=== PATIENT | male | born 1945 | race Caucasian/White ===

== ENCOUNTER 2018-11-10 10:42 | Observation (INO) ==
--- NOTE | 2018-11-05 10:23 | PAT Medication Instructions ---
Medication Instructions Date of Service November 05, 2018 Home Medications alfuzosin 10 mg PO DAILY aspirin 81 mg PO DAILY finasteride [Proscar] 5 mg PO QAM hydrochlorothiazide 25 mg PO HS lisinopril 40 mg PO HS tamsulosin [Flomax] 0.4 mg PO QAM ASK your prescriber and surgeon aspirin 81 mg PO DAILY Take morning of surgery With a small sip of water, OTHERWISE NOTHING TO EAT OR DRINK AFTER MIDNIGHT: alfuzosin 10 mg PO DAILY finasteride [Proscar] 5 mg PO QAM tamsulosin [Flomax] 0.4 mg PO QAM Take evening before surgery hydrochlorothiazide 25 mg PO HS lisinopril 40 mg PO HS Other Notes If you have any questions please call us at [phone] or [phone] or [phone] or [phone]
--- NOTE | 2018-11-06 11:41 | Anesthesiology Consultation ---
Date of Service November 06, 2018 Assessment & Plan (1) Encounter for pre-operative examination: - No previous anesthesia records. Chart Review Chart Review: Acceptable Risk for Surgery (Pending confirmed EKG) and Patient seen in Pre Admission Testing Consults Requested none Teaching & Discussion Pre-Anesthesia Teaching/Discussion Notes: Instructed NPO after midnight before surgery, except medications with 15 cc of water. Medication instructions provided according to the PAT guidelines. History Surgery Operation Date: 11/10/18 12:25 Proposed Procedures p Photoselective Vaporization of the Prostate using Greenlight Laser - Edward Piña MD Height/Weight Height: 5 ft 9 in Weight: 113.4 kg Allergies Allergy/AdvReac Type Severity Reaction Status Date / Time No Known Allergies Allergy Verified 11/04/18 11:33 Medications Home Medications Medication Instructions Recorded Confirmed Last Taken alfuzosin 10 mg PO DAILY 11/04/18 11/04/18 Unknown aspirin 81 mg PO DAILY 11/04/18 11/04/18 Unknown finasteride [Proscar] 5 mg PO QAM 11/04/18 11/04/18 Unknown hydrochlorothiazide 25 mg PO HS 11/04/18 11/04/18 Unknown lisinopril 40 mg PO HS 11/04/18 11/04/18 Unknown tamsulosin [Flomax] 0.4 mg PO QAM 11/04/18 11/04/18 Unknown Past Medical History Medical History BPH (benign prostatic hyperplasia) Degenerative disc disease Gout Hypertension Osteoarthritis Exercise / Class Metabolic Activity II 4-5 Yardwork/Stairs/Walk up hill (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 Denies CP or SOB. 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) History of arthroscopy LEFT KNEE History of cataract surgery LEFT History of colonoscopy History of repair of rotator cuff RT History of tonsillectomy History of tooth extraction Past Anesthesia History No Hx of Anesthesia Complications and No Family Hx of Anesthesia Complications History of PONV No Hx of Motion Sickness and History of PONV (Once after traumatic amputation with flap closure) Social History Smoking Status: Never smoker Do You Dip or Chew Tobacco: No Hx Alcohol Use: Yes Alcohol type: beer and hard liquor alcohol intake frequency: a few times a week Hx Substance Use: No substance use type: does not use Review of Systems Patient denies chest pain, shortness of breath, dyspnea on exertion, reflux, cough, wheezing, palpitations. +Joint Pain (Gout causes foot pain, Back) Physical Exam Vital Signs BP: 121/80 P: 60 R: 16 T: 97.9 SPO2: 99% on RA Constitutional + obese ENMT Thyromental Distance: > or= 3.5 Finger Breadths (4) Mallampati Class: II Neck normal visual inspection, trachea midline and + thick neck; neck extension not limited Respiratory normal respiratory effort Auscultation: lungs clear to auscultation bilaterally Cardiovascular Rate/Rhythm: regular rate and regular rhythm Heart Sounds: no murmur Vessels: no carotid bruit Neurologic moves all extremities Psychiatric Orientation: alert and oriented x 3 Testing Laboratory Results Urine Color Yellow 11/06/18 11:57 Urine Appearance Clear (Clear) 11/06/18 11:57 Urine pH 7.0 (4.5-7.5) 11/06/18 11:57 Ur Specific [place] 1.006 (1.000-1.030) 11/06/18 11:57 Urine Protein Negative (Negative) 11/06/18 11:57 Urine Glucose (UA) Negative (Negative) 11/06/18 11:57 Urine Ketones Negative (Negative) 11/06/18 11:57 Urine Nitrite Negative (Negative) 11/06/18 11:57 Ur Leukocyte Esterase Negative (Negative) 11/06/18 11:57 Urine WBC (Auto) 0 /hpf (0-5) 11/06/18 11:57 Urine RBC (Auto) 0-4 /hpf (0-4) 11/06/18 11:57 U Hyaline Cast (Auto) 1-5 /lpf (0-5) 11/06/18 11:57 U Epithel Cells (Auto) 5-10 /lpf (0-5) H 11/06/18 11:57 Urine Bacteria (Auto) Negative (Negative) 11/06/18 11:57 Blood Type O Positive 11/06/18 11:57 Antibody Screen NEGATIVE 11/06/18 11:57 11/06/18 11:57 Urine Culture - Preliminary Urine,Clean Catch No growth - Less than 1,000 colonies/mL, Final report to follow. [facility] 7/20/19 WBC: 10.0 H/H: 16.9 H/ 50.2 H PLATELETS: 188 SODIUM: 135 POTASSIUM: 4.4 CHLORIDE: 98 CO2: 27 BUN: 22 H CREATININE: 1.21 GLUCOSE: 118 H Electrocardiogram Date: 11/06/18 Findings: + SB @ (59) Non-specific intra-ventricular conduction delay Chest X-Ray Date: 11/06/18 Findings: + NAD
--- NOTE | 2018-11-06 12:35 | XRay Report ---
XR chest Pre-admission PA/Lat CLINICAL HISTORY: pat preoperative evaluation COMPARISON STUDY: No previous studies for comparison. FINDINGS: The bones soft tissues and hemidiaphragms are normal. The cardiomediastinal silhouette is n ormal. The lungs are clear. The pulmonary vasculature is normal. IMPRESSION: Negative chest. The above report was generated using voice recognition software. It may contain grammatical, syntax or spelling errors. Electronically signed by: Juan Luis Garcia M.D. 11/06/2018 12:34 PM
[2018-11-06 12:58] LABS: Appearance Urine Clear (Clear); Bacteria Urine Automated Negative (Negative); Bilirubin Urine Negative (Negative); Blood Urine Trace (Negative); Color Urine Yellow; Glucose Urine UA Negative (Negative); Ketones Urine Negative (Negative); Leukocyte Esterase Urine Negative (Negative); Nitrite Urine Negative (Negative); Protein Urine Negative (Negative); RBC Urine Automated 0-4 /hpf (0-4); Specific Gravity Urine 1.006 (1.000-1.030); Urobilinogen Urine Negative (Negative); WBC Urine Automated 0 /hpf (0-5)
[~2018-11-10 10:42] MED LIST: CIPROFLOXACIN 400 MG/200 ML BAG IV SCH; LR 15ML/HR IV SCH
[2018-11-10] MEDS ORDERED: MEPERIDINE HCL 25 MG/ML CARP IV PRN (10:47)
[2018-11-10] MEDS ORDERED: PHENYLEPHRINE 100MCG/ML 5ML SYR IV PRN (10:47)
[2018-11-10] MEDS ORDERED: fentaNYL citrate 100 MCG/2 ML VIAL IV PRN (10:47)
[2018-11-10] MEDS ORDERED: ATROPINE SULFATE 0.1 MG/ML 10ML SYR IV PRN (10:47)
[2018-11-10] MEDS ORDERED: LABETALOL HCL IV 5 MG/ML 20ML IV PRN (10:47)
[2018-11-10] MEDS ORDERED: ONDANSETRON INJ 2 MG/ML 2 ML VIAL IV PRN ×2 (10:47→15:28)
[2018-11-10] MEDS ORDERED: HYDROmorphone INJ 1 MG/ML SYRINGE IV PRN ×2 (10:47→15:28)
[2018-11-10] MEDS ORDERED: ePHEDrine sulfate 50 MG/ML AMP IV PRN (10:47)
[2018-11-10] MEDS ORDERED: PROPOFOL IV EMULSION 10 MG/ML 20 ML VIAL IV ONE (11:16)
[2018-11-10] MEDS ORDERED: DEXAMETHASONE SOD INJ 4 MG/ML VIAL ONE (11:16)
[2018-11-10] MEDS ORDERED: LIDOCAINE HCL 2% 2 ML VIAL/AMP(20MG/ML) INFIL ONE (11:16)
[2018-11-10] MEDS ORDERED: ONDANSETRON INJ 2 MG/ML 2 ML VIAL ONE (11:16)
[2018-11-10] MEDS ORDERED: fentaNYL citrate 100 MCG/2 ML VIAL ONE (11:16)
--- NOTE | 2018-11-10 12:13 | History & Physical Bridge Note ---
Date of Service November 10, 2018 History & Physical Bridge Note I have examined the patient, reviewed the History & Physical and in the interval since the performance of the History & Physical I have noted the following changes of clinical significance: no changes noted
--- NOTE | 2018-11-10 14:06 | Operative Report ---
Post Operative Report Pre & Post Diagnosis Operation Date: 11/10/18 12:25 Preoperative diagnosis: Symptomatic BPH with a history of urinary retention. Postoperative diagnosis: Same. Procedure: Greenlight vaporization of prostate, bipolar button fulguration of prostatic bleeders, bipolar transurethral resection and button vaporization of prostate (greater than 50% of the case performed using bipolar resectoscope). Surgeon: Dr. Edward Piña. Launch Operator: None. Anesthesia: General anesthesia with laryngeal mask. Complications: None. EBL: 50 cc. Drains left in place: 26 [place] three-way Claudio catheter with 15 cc of sterile water in the balloon. Findings: Vascular prostate with significant bleeders requiring bipolar button fulguration throughout the case, excellent hemostasis after completion of case. Procedure Operation Date: 11/10/18 12:25 Brief history: Patient is a pleasant 72-year-old male with a history of persistent BPH symptoms, gross hematuria and urinary retention. After long- term management on maximal medical therapy with tamsulosin and finasteride patient is decided upon greenlight vaporization of his prostate to manage his disease. Previous office cystoscopy notes are appreciated. Please see H&P for further details. Intravenous ciprofloxacin is provided for antibiotic coverage and SCDs used for DVT prophylaxis. Informed consent reviewed preoperatively today. Procedure: Patient was properly identified and brought into the operative suite after identification of appropriate consent in the chart. General anesthesia with laryngeal mask was initiated and patient was prepped and draped in the standard fashion for this procedure. Full timeout procedure was followed. Greenlight laser scope was introduced into the bladder direct visualization. This demonstrated an enlarged prior vascular and engorged consistent with previous findings. Bladder was distended and evaluated demonstrating no intravesical lesions, papillary masses or calculi. Ureteral orifices were ap preciated to be adequately removed from the bladder neck. Using a side fire greenlight laser fiber circumferential vaporization of the prostate gland was undertaken. This included vaporization of the patient's median lobe. Unfortunately, throughout the prostate gland significant arterial and venous bleeding was encountered. A bipolar resectoscope was introduced approximately penitentiary through the case to fulgurate more insistent arterial bleeders and to resect the median lobe until flush with the trigone. Fragments of prostate tissue were irrigated free and sent for pathologic analysis. Bipolar button vaporization of the prostate was also undertaken with some resection of the lateral lobes. When improved hemostasis had been obtained the greenlight laser was reintroduced with a visual obturator and circumferential vaporization was again undertaken. A total of 99,000 J of energy was used. At the end of the case the bipolar resectoscope was reintroduced and further button vaporization was undertaken of the lateral lobes near the apex of the prostate and fulguration of bleeders. After this was completed an open prostatic fossa with excellent hemostasis was noted. Seen the distance the patient would have to travel and discharged today as well as his multiple hospitalizations for retention and clot retention and the degree of bleeding in the operating room today decision was made to admit the patient for overnight observation. Catheter was placed to continuous bladder irrigation and belladonna and opium suppository was provided for additional postoperative analgesia. Anesthesia was reversed and patient was transferred to the recovery room in stable condition. Follow-up CARE: Patient will be admitted to the floor for overnight observation. Surgeon Edward Piña MD Launch Operator None Estimated Blood Loss 50 Findings Consistent with Post-Op Diagnosis Specimens Prostate chips Description of Procedure See above I attest to the content of the Intraoperative Record and any orders documented therein. Any exceptions are noted below.
[2018-11-10] MEDS ORDERED: SODIUM CHLORIDE 0.9% INJ 10 ML VIAL ONE (14:12)
[2018-11-10] MEDS ORDERED: ePHEDrine sulfate 50 MG/ML AMP ONE ×2 (14:12→14:32)
[2018-11-10] MEDS ORDERED: PHENYLEPHRINE HCL 10 MG/ML VIAL ONE (14:32)
[2018-11-10] MEDS ORDERED: BELLADONNA/OPIUM SUPP 60 MG SUPP PR ONE ×2 (15:15→15:28)
[2018-11-10] MEDS ORDERED: BELLADONNA/OPIUM SUPP 60 MG SUPP PR PRN (15:23)
[2018-11-10] MEDS ORDERED: ACETAMINOPHEN 325 MG TAB PO PRN (15:28)
[2018-11-10] MEDS ORDERED: OXYCODONE/ACETAMINOPHEN 5mg/325mg TAB PO PRN ×2 (15:28)
[2018-11-10] MEDS ORDERED: PHENAZOPYRIDINE HCL 200 MG TAB PO PRN (15:28)
--- NOTE | 2018-11-10 16:09 | Anesthesiology Progress Note ---
Date of Service November 10, 2018 Anesthesia Post Procedure Vital Signs Vital Signs: Temp Pulse Pulse Resp BP BP Pulse Ox 11/10/18 16:00 66 16 123/67 97 11/10/18 15:50 71 18 129/71 98 11/10/18 15:40 67 16 120/67 97 11/10/18 15:35 97.0 F L 71 16 134/70 96 11/10/18 11:34 98.1 F 71 18 141/83 H 96 Transfer of Care Handoff Completed per policy Notes Mental Status: alert / awake / arousable and participated in evaluation Patient Amnestic to Procedure: Yes Nausea / Vomiting: adequately controlled Pain: adequately controlled Airway Patency, RR, SpO2: stable & adequate BP & HR: stable & adequate Hydration State: stable & adequate Anesthetic Complications: no major complications apparent and Pt Satisfied with anesthetic care
[2018-11-10 16:57] LABS: Basophils # (auto) 0.01 K/uL (0-0.2); Basophils % (auto) 0.2 %; Eosinophils # (auto) 0.04 K/uL (0-0.5); Eosinophils % (auto) 0.7 %; Hematocrit (blood only) 45.2 % (42-52); Hemoglobin 15.4 g/dL (14.0-18.0); Immature Granulocytes # (auto) 0.02 K/uL (0.00-0.02); Immature Granulocytes % (auto) 0.3 %; Lymphocytes # (auto) 1.25 K/uL (1.2-3.4); Lymphocytes % (auto) 21.1 %; Mean Corpuscular Hgb Conc 34.1 g/dL (32-36); Monocytes # (auto) 0.19 K/uL (0.11-0.59); Monocytes % (auto) 3.2 %; Neutrophils # (auto) 4.41 K/uL (1.4-6.5); Neutrophils % (auto) 74.5 %; Platelet Count 136 K/uL (130-400); RDW Coefficient of Variation 12.8 % (11.5-14.5); RDW Standard Deviation 43.3 fL (36.4-46.3); Red Blood Count 4.86 M/uL (4.7-6.1); White Blood Count 5.92 K/uL (4.8-10.8)
[2018-11-10] MEDS: LACTATED RINGER'S 1,000 ML IV SCH (17:17)
[2018-11-10 17:21] LABS: BUN Creatinine Ratio 13.9 (10-20); Calcium 9.3 mg/dl (8.5-10.1); Creatinine Clr Calc Pharmacy 76.2 ml/min; Est GFR (African American) 77.9; Est GFR (Non-African American) 67.2
[2018-11-10] MEDS: DOCUSATE SODIUM 100 MG CAP PO SCH (20:43)
[2018-11-10] MEDS: CIPROFLOXACIN 500 MG TAB PO SCH (20:43)
[2018-11-10] MEDS ORDERED: hydroCHLOROthiazide 25 MG TAB PO SCH (21:00)
[2018-11-10] MEDS ORDERED: LISINOPRIL 40 MG TAB PO SCH (21:00)
[2018-11-11] MEDS: LACTATED RINGER'S 1,000 ML IV SCH (05:07)
--- NOTE | 2018-11-11 07:30 | Urology Progress Note ---
Date of Service November 11, 2018 Assessment & Plan (1) BPH loc w/o ur obs/LUTS: A/P 72 yo male POD#1 s/p TURP. Doing well. Stop CBI and ambulate. If does well, DC home with steward later today. TOV and f/u as scheduled. HTIVF. Patient vocalizes understanding of the treatment plan. Subjective 72 yo male POD#1 s/p TURP. Urine clear on minimal CBI OVN, tolerating regular diet, ambulatory in room, no events, comfortable, tolerating steward well. Labs yesterday wnl. Review of Systems Constitutional: no fever and no chills Eyes: no diplopia Ear, Nose, Mouth, Throat: no ear trauma Respiratory: no hemoptysis Cardiovascular: no chest pain Gastrointestinal: no abdominal pain, no nausea and no vomiting Genitourinary: no hematuria Integumentary: no acne and no boil Neurologic: no paralysis Psychiatric: no hopelessness Allergy / Immunological: no tongue swelling Physical Exam Constitutional: well developed and well nourished; no acute distress Eyes: eyes not dysmorphic ENMT: Ears: no external ear abnormality Neck: trachea midline; no anterior neck swelling Respiratory: no respiratory distress and does not use accessory muscles Cardiovascular: Vessels: radial pulses present Gastrointestinal (Abdomen): Inspection/Auscultation: abdomen not distended Percussion/Palpation: abdomen soft; abdomen nontender Musculoskeletal: Head/Neck/Chest: normocephalic and neck supple Skin: normal turgor Neurologic: awake; not obtunded Psychiatric: Orientation: oriented x 3 Lymphatic: no lymphadenopathy Results & Data Vital Signs (Past 12 Hours) Vital Signs Temp Pulse Resp BP Pulse Ox 11/11/18 07:22 36.5 C 63 18 110/66 95 11/11/18 02:55 36.6 C 65 18 112/66 94 11/10/18 23:40 36.9 C 66 18 111/62 96 11/10/18 21:00 92 11/10/18 20:39 65 127/72 Laboratory Results Laboratory Results - last 48 hr 11/10/18 11/10/18 16:45 16:45 WBC 5.92 RBC 4.86 Hgb 15.4 Hct 45.2 MCV 93.0 MCH 31.7 MCHC 34.1 RDW Std Deviation 43.3 RDW Coeff of Fco 12.8 Plt Count 136 MPV 11.0 H Immature Gran % (Auto) 0.3 Neut % (Auto) 74.5 Lymph % (Auto) 21.1 Swisher % (Auto) 3.2 Eos % (Auto) 0.7 Baso % (Auto) 0.2 Immature Gran # (Auto) 0.02 Neut # (Auto) 4.41 Lymph # (Auto) 1.25 Swisher # (Auto) 0.19 Eos # (Auto) 0.04 Baso # (Auto) 0.01 Sodium 140 Potassium 4.0 Chloride 103 Carbon Dioxide 30 Anion Gap 7.0 BUN 15 Creatinine 1.10 Est Cr Clr Drug Dosing 76.2 Est GFR ( Amer) 77.9 Est GFR (Non-Af Amer) 67.2 BUN/Creatinine Ratio 13.9 Glucose 107 H Calcium 9.3 PG Care Time/CCT Total # of Minutes Spent Total Time Spent with Patient: Total time spent is greater than 50% in coordination of care (as documented) at patient's floor/unit and/or counseling patient:
[2018-11-11] MEDS: CIPROFLOXACIN 500 MG TAB PO SCH (08:53)
[2018-11-11] MEDS: DOCUSATE SODIUM 100 MG CAP PO SCH (08:53)
[2018-11-11] MEDS ORDERED: TAMSULOSIN HCL 0.4 MG CAP PO SCH (09:00)
[2018-11-11] MEDS ORDERED: FINASTERIDE 5 MG TAB PO SCH (09:00)
--- NOTE | 2018-11-11 13:12 | Communication Note ---
Date of Service: November 11, 2018 Patient seen in afternoon rounds. Reports feeling "great." OOB in chair eating lunch and has been up walking. Tolerating clamped CBI, Claudio tubing remains patent draining light pink urine. Post op care and follow up discussed. Will coordinate discharge.
--- NOTE | 2018-11-27 11:55 | Discharge Summary ---
Date of Service November 27, 2018 Admission HPI Per Admitting Provider 73 yo male with BPH for TURP. See H&P for further details. Admission Exam (Per Admitting) Constitutional well developed and well nourished; no acute distress Eyes eyes not dysmorphic ENMT Ears: no external ear abnormality Neck trachea midline; no anterior neck swelling Respiratory no respiratory distress and does not use accessory muscles Cardiovascular Vessels: radial pulses present Gastrointestinal (Abdomen) Inspection/Auscultation: abdomen not distended Percussion/Palpation: abdomen soft; abdomen nontender Musculoskeletal Head/Neck/Chest: normocephalic and neck supple Skin normal turgor Neurologic awake; not obtunded Psychiatric Orientation: oriented x 3 Lymphatic no lymphadenopathy Discharge Data Procedures Performed Operation Date: 11/10/18 12:25 Actual Procedures p Greenlight Vaporization of Prostate, Bipolar Fulgeration of Prostatic Bleeders, Bipolare Transuretheral Resection of Prostate, Button Vaporization of Prostate(Not Applicable) - Edward Piña MD Hospital Course (1) BPH loc w/o ur obs/LUTS: A/P 72 yo male POD#1 s/p TURP. Doing well. Stop CBI and ambulate. If does well, DC home with steward later today. TOV and f/u as scheduled. HTIVF. Patient vocalizes understanding of the treatment plan. Discharge Instructions See DC instruction sheet, steward in place, outpatient TOV, Rx for antibiotics and analgesics provided, f/u appts in place.
== END 2018-11-11 15:00 | disposition home or self-care (01) ==
LOC: 3E 10:42 → ASU 10:42
DX: N52.9 Male erectile dysfunction, unspecified; R33.8 Other retention of urine; N13.8 Other obstructive and reflux uropathy; I10 Essential (primary) hypertension; N40.1 Benign prostatic hyperplasia with lower urinary tract symptoms; Z79.899 Other long term (current) drug therapy; N28.1 Cyst of kidney, acquired